=== PATIENT | male | born 1960 | race African-American/Black ===

== ENCOUNTER 2019-02-15 17:58 | Emergency (ER) | payer OTHER ==
--- NOTE | 2019-02-15 19:07 | ER Document Report ---
ED Medical Screen (RME) - General Chief Complaint: Leg Swelling Stated Complaint: RIGHT LEG PAIN/SWELLING Time Seen by Provider: 02/15/19 19:01 Primary Care Provider: MARGIE LOUIS MD [Primary Care Provider] - Follow up as needed TRAVEL OUTSIDE OF THE [place] IN LAST 30 DAYS: No - HPI Notes: 02/15/19 19:06 Patient is a 59-year-old male with a history of hypertension who presents complaining of right calf pain that began on Friday with swelling that began on Friday without precipitating event or injury. Patient states that he has never had swelling in his legs before. He was sent here for evaluation for possible DVT. Denies drug allergies. Denies any prolonged immobilization, distance travel, recent surgery/trauma, personal cancer history, hormone use, or previous DVT/PE. Denies LIMON, fever, neck pain, URI, CP, SOB, Abd pain, dysuria, back pain, or rash. I have treated and performed a rapid initial assessment of this patient. A comprehensive ED assessment and evaluation of the patient, analysis of test results and completion of medical decision making process will be conducted by additional ED providers. PHYSICAL EXAMINATION: GENERAL: Well-appearing, well-nourished and in no acute distress. A&Ox4. Answers questions appropriately. Rt leg: + 1+ pitting edema. + calf tenderness. N/v intact otherwise. RLE larger than the LLE. - Related Data Allergies/Adverse Reactions: No Known Allergies Allergy (Unverified 02/15/19 18:24) Past Medical History - Social History Frequency of alcohol use: Occasional Drug Abuse: None - Past Medical History Cardiac Medical History: Reports: Hx Hypertension Pulmonary Medical History: Reports: Hx Asthma Renal/ Medical History: Denies: Hx Peritoneal Dialysis Past Surgical History: Reports: Hx Orthopedic Surgery Physical Exam - Vital signs Vitals: Temp Pulse Resp BP Pulse Ox 98.6 F 69 16 143/92 H 98 02/15/19 18:30 02/15/19 18:30 02/15/19 18:30 02/15/19 18:30 02/15/19 18:30 Course - Vital Signs Vital signs: Temp Pulse Resp BP Pulse Ox 98.6 F 69 16 143/92 H 98 02/15/19 18:30 02/15/19 18:30 02/15/19 18:30 02/15/19 18:30 02/15/19 18:30 Doctor's Discharge - Discharge Referrals: MARGIE LOUIS MD [Primary Care Provider] - Follow up as needed
[2019-02-15 19:57] LABS: ABSOLUTE BASOPHILS # (AUTO) 0.1 10^3/uL (0.0-0.2); ABSOLUTE EOSINOPHILS # (AUTO) 0.3 10^3/uL (0.0-0.6); ABSOLUTE MONOCYTES (AUTO) 1.3 10^3/uL (0.1-1.4); ABSOLUTE NEUT (AUTO) 5.9 10^3/uL (1.7-8.2); BASOPHILS % (AUTO) 0.8 % (0-2); EOSINOPHILS % (AUTO) 2.9 % (0-6); HEMATOCRIT 41.6 % (37.9-51.0); HEMOGLOBIN 14.3 g/dL (13.5-17.0); LYMPHOCYTES % (AUTO) 21.3 % (13-45); MEAN CORPUSCULAR HEMOGLOBIN 28.6 pg (27.0-33.4); MEAN CORPUSCULAR HGB CONC 34.5 g/dL (32.0-36.0); MEAN CORPUSCULAR VOLUME 83 fl (80-97); MONOCYTES % (AUTO) 13.3 % (3-13); PLATELET COUNT 147 10^3/uL (150-450); RED BLOOD COUNT 5.02 10^6/uL (4.35-5.55); RED CELL DISTRIBUTION WIDTH 13.4 % (11.5-14.0); SEGMENTED NEUTROPHILS % (AUTO) 61.7 % (42-78); TOTAL CELLS COUNTED % (AUTO) 100 %; WHITE BLOOD COUNT 9.5 10^3/uL (4.0-10.5)
[2019-02-15 20:08] LABS: INTERNATIONAL RATION (INR) 0.95; PROTHROMBIN TIME 13.2 SEC (11.4-15.4)
[2019-02-15 20:09] LABS: PARTIAL THROMBOPLASTIN TIME 28.6 SEC (23.5-35.8)
[2019-02-15 20:16] LABS: ANION GAP 9 (5-19); BLOOD UREA NITROGEN 15 mg/dL (7-20); CALCIUM 9.6 mg/dL (8.4-10.2); CARBON DIOXIDE 27 mmol/L (22-30); CHLORIDE 101 mmol/L (98-107); GLUCOSE 86 mg/dL (75-110); POTASSIUM 4.5 mmol/L (3.6-5.0); SODIUM 137.4 mmol/L (137-145)
--- NOTE | 2019-02-15 20:59 | ER Document Report ---
ED General - General Chief Complaint: Leg Swelling Stated Complaint: RIGHT LEG PAIN/SWELLING Time Seen by Provider: 02/15/19 19:01 Primary Care Provider: ELA HAND MD [ACTIVE STAFF] - Follow up in 3-5 days (call for appointment ) MARGIE LOUIS MD [ACTIVE STAFF] - Follow up as needed Notes: Patient is a 59-year-old male that presents to the emergency department for chief complaint of right calf pain and swelling. Patient reports that he noticed some pain in his calf on Friday, noticed the swelling on Friday comments on the right side, and seems like it was getting worse over the period of time, he went to urgent care to have it evaluated and they were concerned that he may have a DVT so they sent him to the emergency department. He denies any recent prolonged travel, or injury to his leg, denies any recent surgery, or current cancer. He is unaware of any family history of DVTs. He denies having any associated fever, chills, night sweats, chest pain or shortness of breath. He currently rates his pain as a 0 out of 10, really only bothers him when he is walking. Past Medical History: Hypertension, degenerative disc disease Past Surgical History: Cataract surgery, elbow and shoulder surgery Social History: Admits to smoking cigars, and occasional alcohol use, denies illicit drug use. Family History: Reviewed and noncontributory for presenting illness Allergies: Reviewed, see documented allergy list. REVIEW OF SYSTEMS: Other than noted above, the 12 point review of systems was reviewed with the patient and were negative, all pertinent findings are included in the HPI. PHYSICAL EXAMINATION: Vital signs reviewed, nursing noted reviewed. GENERAL: Well-appearing, well-nourished and in no acute distress. HEAD: Atraumatic, normocephalic. EYES: Eyes appear normal, extraocular movements intact, sclera anicteric, conjunctiva are normal. ENT: nares patent, oropharynx clear without exudates. Moist mucous membranes. NECK: Normal range of motion, supple without lymphadenopathy LUNGS: Breath sounds clear to auscultation bilaterally and equal. No wheezes rales or rhonchi. HEART: Regular rate and rhythm without murmurs ABDOMEN: Soft, nontender, normoactive bowel sounds. No rebound, guarding, or rigidity. No masses appreciated. EXTREMITIES: The right calf is tender to palpate posteriorly, along with some medial tenderness of the thigh, there is 1+ edema to the right lower extremity, to the knee, where compared to the left. No significant varicosities noted. No erythema noted. Rest the patient's extremity exam is grossly unremarkable. NEUROLOGICAL: No focal neurological deficits. Moves all extremities spontaneously Motor and sensory grossly intact on exam. PSYCH: Normal mood, normal affect. SKIN: Warm, Dry, normal turgor, no rashes or lesions noted on exposed skin TRAVEL OUTSIDE OF THE [place] IN LAST 30 DAYS: No - Related Data Allergies/Adverse Reactions: No Known Allergies Allergy (Unverified 02/15/19 18:24) Past Medical History - Social History Smoking Status: Current Some Day Smoker Frequency of alcohol use: Occasional Drug Abuse: None Family History: Reviewed & Not Pertinent Patient has suicidal ideation: No Patient has homicidal ideation: No - Past Medical History Cardiac Medical History: Reports: Hx Hypertension Pulmonary Medical History: Reports: Hx Asthma Renal/ Medical History: Denies: Hx Peritoneal Dialysis Past Surgical History: Reports: Hx Orthopedic Surgery Physical Exam - Vital signs Vitals: Temp Pulse Resp BP Pulse Ox 98.6 F 69 16 143/92 H 98 02/15/19 18:30 02/15/19 18:30 02/15/19 18:30 02/15/19 18:30 02/15/19 18:30 Course - Re-evaluation Re-evalutation: Patient seen and examined vital signs reviewed. Laboratory data and/or imaging were ordered as appropriate for the patient's presenting symptoms and complaint, with consideration of any critical or life threatening conditions that may be associated with their obtained history and exam as noted above. Results were reviewed when available and demonstrated unremarkable blood work, but the patient did have a positive duplex imaging of the right lower extremity, for DVT in the distal femoral vein, and in the calf The patient was re-evaluated and was stable, was given prescription for Xarelto, given first dose of 50 mg in the ED, explained the risks and benefits of this medication including but not limited to spontaneous GI or intracranial hemorrhage, to avoid any potential traumatic circumstances and to minimize risks of falling at home and at work. Evaluation was most consistent with acute DVT in the right lower extremity, recommended follow-up with hematology, given referral, is given a prescription for 21 days of Xarelto at 15 mg twice daily, and then 7 additional days to take it as 20 mg daily. Results were discussed with the patient at this point, after careful consideration I feel that that patient can be discharged from the emergency department, the patient was educated treatments and reasons to return to the emergency department based on their presumed diagnosis as noted above, they were advised to followup with a primary care physician in 2-3 days. Patient was agreeable to plan of care. *Note is created using voice recognition software and may contain spelling, syntax or grammatical errors. Laboratory 02/15/19 02/15/19 02/15/19 19:30 19:30 19:30 WBC 9.5 RBC 5.02 Hgb 14.3 Hct 41.6 MCV 83 MCH 28.6 MCHC 34.5 RDW 13.4 Plt Count 147 L Seg Neutrophils % 61.7 Lymphocytes % 21.3 Monocytes % 13.3 H Eosinophils % 2.9 Basophils % 0.8 Absolute Neutrophils 5.9 Absolute Lymphocytes 2.0 Absolute Monocytes 1.3 Absolute Eosinophils 0.3 Absolute Basophils 0.1 PT 13.2 INR 0.95 APTT 28.6 Sodium 137.4 Potassium 4.5 Chloride 101 Carbon Dioxide 27 Anion Gap 9 BUN 15 Creatinine 1.06 Est GFR ( Amer) > 60 Est GFR (Non-Af Amer) > 60 Glucose 86 Calcium 9.6 Venous Doppler Study 02/15/19 19:06 IMPRESSION: Findings positive for right lower extremity DVT, as above. copyright 2010 [employer]- All Rights Reserved - Vital Signs Vital signs: Temp Pulse Resp BP Pulse Ox 98.6 F 79 20 152/95 H 98 02/15/19 18:30 02/15/19 22:43 02/15/19 22:43 02/15/19 22:43 02/15/19 22:43 - Laboratory Result Diagrams: 02/15/19 19:30 02/15/19 19:30 Laboratory results interpreted by me: 02/15/19 19:30 Plt Count 147 L Monocytes % 13.3 H Discharge - Discharge Clinical Impression: DVT (deep venous thrombosis) Qualifiers: DVT location: lower extremity Affected thrombotic vein of extremity: femoral Chronicity: acute Laterality: right Qualified Code(s): I82.411 - Acute embolism and thrombosis of right femoral vein Condition: Stable Disposition: HOME, SELF-CARE Instructions: DVT Outpatient Treatment ([facility]) Additional Instructions: Please follow-up with the life insurance specialist listed with your paperwork. Take the new medication as directed and if you develop chest pain or shortness of breath, please return to the emergency department. Prescriptions: Rivaroxaban [Xarelto] 20 mg PO DAILY #7 tablet Rivaroxaban [Xarelto 15 mg Tablet] 15 mg PO BID #42 tablet Referrals: MARGIE LOUIS MD [ACTIVE STAFF] - Follow up as needed ELA HAND MD [ACTIVE STAFF] - Follow up in 3-5 days (call for appointment )
[2019-02-15] MEDS ORDERED: RIVAROXABAN 15 MG TABLET PO ONE (21:49)
--- NOTE | 2019-02-15 22:39 | RADIOLOGY REPORT (SQ) ---
EXAM DESCRIPTION: US EXTREMITY VEINS UNILATERAL COMPLETED DATE/TME: 02/15/2019 19:06 CLINICAL HISTORY: 59 years, Male, RLE edema, calf pain COMPARISON: None. TECHNIQUE: Transverse longitudinal sonographic images of the right lower extremity deep venous system LIMITATIONS: None. FINDINGS: Visible areas of thrombus associated with the distal right superficial femoral vein extending into the right popliteal and right posterior tibial veins. Lack of normal compressibility and augmentation. No other areas of visible thrombus. Doppler images are otherwise normal. IMPRESSION: Findings positive for right lower extremity DVT, as above. copyright 2010 [employer]- All Rights Reserved
[2019-02-15 22:44] VITALS: BP 152/95
== END 2019-02-15 22:44 | disposition home or self-care (01) ==
LOC: ER 17:58
DX: I82.411 Acute embolism and thrombosis of right femoral vein (principal); M79.89 Other specified soft tissue disorders; F17.290 Nicotine dependence, other tobacco product, uncomplicated; I10 Essential (primary) hypertension
CPT/HCPCS: 36415; 80048; 85025; 85610; 85730; 93971; 99284

== ENCOUNTER 2020-02-05 19:40 | Emergency (ER) | payer OTHER ==
[2020-02-05] MEDS ORDERED: NORMAL SALINE 1000 ML 1,000 ML IV PRN (19:57)
[2020-02-05] MEDS ORDERED: CEFTRIAXONE INJ 1000 MG VIAL IM ONE (19:57)
[2020-02-05] MEDS ORDERED: KETOROLAC TROMETHAMINE 60 MG/2 ML SDV IV ONE (19:59)
--- NOTE | 2020-02-05 20:01 | ER Document Report ---
ED General - General Chief Complaint: Fever Stated Complaint: FEVER, HEADACHE NECK PAIN, SHOULDER PAIN Time Seen by Provider: 02/05/20 19:56 Information source: Patient Notes: 60-year-old male who has new onset fever and states he is got headache posteriorly with pain down his neck laterally he has no petechiae no photophobia no nausea no vomiting TRAVEL OUTSIDE OF THE [place] IN LAST 30 DAYS: No - HPI Onset: Just prior to arrival Onset/Duration: Persistent Quality of pain: Achy Severity: Moderate - Related Data Allergies/Adverse Reactions: shellfish derived Allergy (Intermediate, Verified 02/05/20 22:02) Hives Home Medications: Hydrocodone, Naproxen, Hydroclorathiazide, losartan Past Medical History - General Information source: Patient - Social History Smoking Status: Never Smoker Cigarette use (# per day): No Chew tobacco use (# tins/day): No Smoking Education Provided: No Frequency of alcohol use: Occasional Drug Abuse: None Family History: Reviewed & Not Pertinent Patient has homicidal ideation: No - Past Medical History Cardiac Medical History: Reports: Hx Hypertension Pulmonary Medical History: Reports: Hx Asthma Renal/ Medical History: Denies: Hx Peritoneal Dialysis Past Surgical History: Reports: Hx Orthopedic Surgery Review of Systems - Review of Systems Constitutional: No symptoms reported EENT: No symptoms reported Cardiovascular: No symptoms reported Respiratory: No symptoms reported Gastrointestinal: No symptoms reported Genitourinary: No symptoms reported Male Genitourinary: No symptoms reported Musculoskeletal: No symptoms reported Skin: No symptoms reported Hematologic/Lymphatic: No symptoms reported Neurological/Psychological: No symptoms reported Physical Exam - Vital signs Vitals: Temp Pulse Resp BP Pulse Ox 100.4 F 97 18 139/85 H 97 02/05/20 19:50 02/05/20 19:50 02/05/20 19:50 02/05/20 19:50 02/05/20 19:50 Interpretation: Normal - General General appearance: Appears well, Alert - HEENT Head: Normocephalic, Atraumatic Eyes: Normal Pupils: PERRL - Respiratory Respiratory status: No respiratory distress Chest status: Nontender Breath sounds: Normal Chest palpation: Normal - Cardiovascular Rhythm: Regular Heart sounds: Normal auscultation Murmur: No - Abdominal Inspection: Normal Distension: No distension Bowel sounds: Normal Tenderness: Nontender Organomegaly: No organomegaly - Back Back: Normal, Nontender - Extremities General upper extremity: Normal inspection, Nontender, Normal color, Normal ROM, Normal temperature General lower extremity: Normal inspection, Nontender, Normal color, Normal ROM, Normal temperature, Normal weight bearing. No: Corrie's sign - Neurological Neuro grossly intact: Yes Cognition: Normal Orientation: AAOx4 Christian Coma Scale Eye Opening: Spontaneous Christian Coma Scale Verbal: Oriented [place] Coma Scale Motor: Obeys Commands [place] Coma Scale Total: 15 Speech: Normal Motor strength normal: LUE, RUE, LLE, RLE Sensory: Normal - Psychological Associated symptoms: Normal affect, Normal mood - Skin Skin Temperature: Warm Skin Moisture: Dry Skin Color: Normal Course - Vital Signs Vital signs: Temp Pulse Resp BP Pulse Ox 98.5 F 78 12 126/78 H 99 02/06/20 01:38 02/06/20 01:38 02/06/20 01:38 02/06/20 01:38 02/06/20 01:38 - Laboratory Result Diagrams: 02/05/20 20:06 02/05/20 20:06 Laboratory results interpreted by me: 02/05/20 02/05/20 02/05/20 20:06 20:06 20:38 WBC 17.5 H Plt Count 147 L Lymph % (Auto) 9.4 L Absolute Neuts (auto) 14.8 H Seg Neutrophils % 84.4 H Sodium 134.9 L Chloride 97 L Urine Urobilinogen 2.0 H Discharge - Discharge Clinical Impression: Fever Qualifiers: Encounter type: initial encounter Headache Qualifiers: Headache chronicity pattern: acute headache Condition: Stable Disposition: AGAINST MEDICAL ADVICE Instructions: Acetaminophen, Fever ([facility]) Additional Instructions: No clear cause was identified today for your fever. You were treated with antibiotics for possible meningitis. An attempt to obtain spinal fluid was unsuccessful, and you have declined admission to the hospital for continued IV antibiotics and attempt to obtain fluid via radiology. It has been explained to you that deficits and complications from bacterial meningitis include seizures, neurological deficits, and even . It is also been explained to you that, if it anytime you change your mind regarding admission, or another attempt at lumbar puncture, you can return to the ED for further evaluation. If you develop worsening or new concerning symptoms of any sort, please return immediately to the ER for further evaluation. Otherwise, follow-up with your primary care provider on Jeff morning. We did perform COVID-19 testing on you today. This will take at least 48 hours to result. Please note that you should self quarantine, as should any members of your household. You will be contacted with results.
[2020-02-05 20:31] LABS: ABSOLUTE BASOPHILS # (AUTO) 0.1 10^3/uL (0.0-0.2); ABSOLUTE EOSINOPHILS # (AUTO) 0.1 10^3/uL (0.0-0.6); ABSOLUTE LYMPHOCYTES (AUTO) 1.6 10^3/uL (0.5-4.7); ABSOLUTE MONOCYTES (AUTO) 0.9 10^3/uL (0.1-1.4); ABSOLUTE NEUT (AUTO) 14.8 10^3/uL (1.7-8.2); BASOPHILS % (AUTO) 0.4 % (0-2); EOSINOPHILS % (AUTO) 0.6 % (0-6); HEMATOCRIT 44.5 % (37.9-51.0); HEMOGLOBIN 15.3 g/dL (13.5-17.0); LYMPHOCYTES % (AUTO) 9.4 % (13-45); MEAN CORPUSCULAR HEMOGLOBIN 28.2 pg (27.0-33.4); MEAN CORPUSCULAR HGB CONC 34.5 g/dL (32.0-36.0); MEAN CORPUSCULAR VOLUME 82 fl (80-97); MONOCYTES % (AUTO) 5.2 % (3-13); PLATELET COUNT 147 10^3/uL (150-450); RED BLOOD COUNT 5.44 10^6/uL (4.35-5.55); RED CELL DISTRIBUTION WIDTH 13.5 % (11.5-14.0); SEGMENTED NEUTROPHILS % (AUTO) 84.4 % (42-78); TOTAL CELLS COUNTED % (AUTO) 100 %; WHITE BLOOD COUNT 17.5 10^3/uL (4.0-10.5)
[2020-02-05 20:48] LABS: ALBUMIN 4.6 g/dL (3.5-5.0); ALKALINE PHOSPHATASE 80 U/L (38-126); ANION GAP 10 (5-19); ASPARTATE AMINO TRANSFERASE 23 U/L (17-59); BILIRUBIN,TOTAL 0.6 mg/dL (0.2-1.3); BLOOD UREA NITROGEN 16 mg/dL (7-20); CALCIUM 9.7 mg/dL (8.4-10.2); CARBON DIOXIDE 28 mmol/L (22-30); CHLORIDE 97 mmol/L (98-107); GLUCOSE 98 mg/dL (75-110); POTASSIUM 4.5 mmol/L (3.6-5.0); TOTAL PROTEIN 8.2 g/dL (6.3-8.2)
--- NOTE | 2020-02-05 21:05 | RADIOLOGY REPORT (SQ) ---
EXAM DESCRIPTION: CT HEAD WITHOUT IV CONTRAST COMPLETED DATE/TME: 02/05/2020 19:56 CLINICAL HISTORY: 60 years, Male, pain COMPARISON: None. TECHNIQUE: Images stored on PACS. All CT scanners at this facility use dose modulation, iterative reconstruction, and/or weight based dosing when appropriate to reduce radiation dose to as low as reasonably achievable (ALARA). [facility]: Dose Right [facility]: CareDose [facility]: Dose Right [facility]: Teradose 4D [facility]: [employer] LIMITATIONS: None. EXAM DESCRIPTION: CLINICAL HISTORY: pain COMPARISON: None Available TECHNIQUE: Contiguous axial CT images of the head were obtained. Coronal and sagittal reconstructions were created from the axial data. This exam was performed according to our departmental dose-optimization program, which includes automated exposure control, adjustment of the mA and/or kV according to patient size and/or use of iterative reconstruction technique. FINDINGS: There is no evidence of acute mass, mass effect, midline shift or hemorrhage. The ventricles and extra-axial CSF spaces are unremarkable. The brain parenchyma appears normal for the patient's age. No acute abnormalities of the bones is seen. IMPRESSION: No acute intracranial abnormality.
--- NOTE | 2020-02-05 21:09 | RADIOLOGY REPORT (SQ) ---
EXAM DESCRIPTION: CT CERVICAL SPINE WITHOUT IV CONTRAST COMPLETED DATE/TME: 02/05/2020 19:57 CLINICAL HISTORY: 60 years, Male, pain COMPARISON: None. TECHNIQUE: Images stored on PACS. All CT scanners at this facility use dose modulation, iterative reconstruction, and/or weight based dosing when appropriate to reduce radiation dose to as low as reasonably achievable (ALARA). [facility]: Dose Right [facility]: CareDose [facility]: Dose Right [facility]: Teradose 4D [facility]: [employer] EXAM DESCRIPTION: CLINICAL HISTORY: pain COMPARISON: None Available TECHNIQUE: Contiguous axial images of the cervical spine were obtained without the administration of intravenous contrast followed by reconstruction images. This exam was performed according to our departmental dose-optimization program, which includes automated exposure control, adjustment of the mA and/or kV according to patient size and/or use of iterative reconstruction technique. FINDINGS: There is no acute fracture or subluxation. Prevertebral soft tissues are within normal limits. IMPRESSION: No acute fracture or subluxation
[2020-02-05 21:36] LABS: APPEARANCE,URINE CLEAR; BILIRUBIN,URINE NEGATIVE (NEGATIVE); COLOR,URINE YELLOW; GLUCOSE, URINE NEGATIVE (NEGATIVE); KETONES,URINE NEGATIVE (NEGATIVE); LEUKOCYTE ESTERASE,URINE NEGATIVE (NEGATIVE); NITRITE,URINE NEGATIVE (NEGATIVE); PROTEIN,URINE NEGATIVE (NEGATIVE); URINE SPECIFIC GRAVITY 1.016
[2020-02-05] MEDS ORDERED: ACETAMINOPHEN 325 MG TABLET PO ONE (22:01)
[2020-02-05] MEDS ORDERED: LIDOCAINE 1% INJ-PF (10 MG/ML) 30 ML SDV INJ ONE (23:36)
[2020-02-06] MEDS ORDERED: NORMAL SALINE 1000 ML 1,000 ML IV ONE (00:25)
[2020-02-06] MEDS ORDERED: CEFTRIAXONE 1 GM/D5W RTU 1 GM/50 ML RTUPB IV ONE (00:25)
--- NOTE | 2020-02-06 00:34 | ER Document Report ---
ED General - General Chief Complaint: Fever Stated Complaint: FEVER, HEADACHE NECK PAIN, SHOULDER PAIN Time Seen by Provider: 02/05/20 19:56 TRAVEL OUTSIDE OF THE [place] IN LAST 30 DAYS: No - HPI Notes: Patient is a 60-year-old male with a history of chronic back pain, degenerative disc disease, hypertension, who presents to the emergency department for evaluation of fever, headache, neck pain. He states he was outside smoking a cigar at approximately 5 PM. He developed chills. He came in, states he developed a posterior headache. He states it was on both sides of the occipital region. He states he gets headaches sometimes, but usually they are more one- sided than the other. He states that occasionally this pain radiates into his neck and his shoulders. He denies any phi neck stiffness. He has had no ear pain, no sore throat, no cough. No rashes. No nausea or vomiting. Normal bowel movements. No dysuria, hematuria, urinary frequency. He has no dental lesions. He has no skin rashes. 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 - Related Data Allergies/Adverse Reactions: shellfish derived Allergy (Intermediate, Verified 02/05/20 22:02) Hives Home Medications: Hydrocodone, Naproxen, Hydroclorathiazide, losartan Past Medical History - General Information source: Patient - Social History Smoking Status: Never Smoker Cigarette use (# per day): No Chew tobacco use (# tins/day): No Frequency of alcohol use: Occasional Drug Abuse: None Family History: Reviewed & Not Pertinent, Malignancy Patient has homicidal ideation: No - Past Medical History Cardiac Medical History: Reports: Hx Hypertension Pulmonary Medical History: Reports: Hx Asthma Renal/ Medical History: Denies: Hx Peritoneal Dialysis Musculoskeletal Medical History: Reports Other - Degenerative disc disease of lumbar spine Past Surgical History: Reports: Hx Orthopedic Surgery Review of Systems - Review of Systems Constitutional: See HPI Neurological/Psychological: See HPI -: Yes All other systems reviewed and negative Physical Exam - Vital signs Vitals: Temp Pulse Resp BP Pulse Ox 100.4 F 97 18 139/85 H 97 02/05/20 19:50 02/05/20 19:50 02/05/20 19:50 02/05/20 19:50 02/05/20 19:50 - Notes Notes: Vital signs reviewed, please refer to chart. Head is normocephalic, atraumatic. Pupils equal round, reactive to light. Oral mucosa is moist. Uvula is midline. Pharynx is without erythema or exudate. Neck is supple without meningismus. Heart is regular rate and rhythm. Lungs are clear to auscultation bilaterally. Abdomen is soft, nontender, normoactive bowel sounds throughout. Extremities without cyanosis, clubbing. Posterior calves are nontender. Peripheral pulses are equal. Skin is warm and dry. Patient is awake, alert, oriented x3. Cranial nerves II - XII are grossly intact without focal neurological deficits. Strength is plus 5 out of 5 bilateral upper and lower extremities. Sensation is intact. Reflexes symmetrical. Intact [id number], rapid alternating movements, [id number]. Course - Re-evaluation Re-evalutation: 02/06/20 00:31 Patient presents to the emergency department for evaluation of chills and h eadache. While here he progressed to a fever. He was initially seen by [facility], please see his note to correlate with mine. In short, this patient has no clear focus of infection. His leukocytosis. He has a headache without phi nuchal rigidity, but certainly the possibility of meningitis had to be considered on the differential diagnosis. He was given a gram of Rocephin per the [facility], I did add a second gram as per appropriate protocol for meningitis treatment. Lumbar puncture was explained in great detail, consent was signed and placed on the chart. Please see separate procedure note. I was unsuccessful in attempt to obtain spinal fluid. I offered the patient admission, IV antibiotics, and interventional radiology lumbar puncture performed, the patient states he would like to go home. We talked at length about the sequelae of meningitis. We talked at length about the neurological deficits, seizures, and that can result of untreated bacterial meningitis. He voiced understanding to this and still wishes to leave. He did sign AMA forms. I still did cover him with 2 g o f IV Rocephin. He was given IV fluids. He was given Tylenol for his headache. He understand that if he changes his mind at any time regarding treatment or admission he can come back to the emergency department. - Vital Signs Vital signs: Temp Pulse Resp BP Pulse Ox 98.6 F 68 14 111/69 99 02/06/20 00:15 02/06/20 00:15 02/06/20 00:15 02/06/20 00:15 02/06/20 00:15 - Laboratory Result Diagrams: 02/05/20 20:06 02/05/20 20:06 Laboratory results interpreted by me: 02/05/20 02/05/20 02/05/20 20:06 20:06 20:38 WBC 17.5 H Plt Count 147 L Lymph % (Auto) 9.4 L Absolute Neuts (auto) 14.8 H Seg Neutrophils % 84.4 H Sodium 134.9 L Chloride 97 L Urine Urobilinogen 2.0 H Procedures - Lumbar Puncture Lumbar puncture Consent obtained: Yes Lumbar puncture pre-procedure: Sterile PPE donned, Betadine prep applied, Chloraprep applied Patient position: Other - Initially sitting, then right lateral recumbent Anesthetic type: 1% Lidocaine mL's of anesthetic: 4 Number of attempts: 2 Complications: No - Unable to obtain fluid Notes: 02/06/20 00:36 The procedure was explained in great detail. Indications were explained. Consent was signed and placed on the chart. The area was prepped and draped in the usual sterile fashion. Initially, patient was placed in an upright sitting position, with bending over the shoulders to optimize pacing. The top of the posterior superior iliac spine was palpated, and the L3-L4 interspace was identified. The area was prepped and draped in usual sterile fashion. The area was anesthetized in the subcutaneous and dermal tissues with approximately 2 and half cc of 1% lidocaine. Once adequate anesthesia was achieved. Spinal needle was advanced. Despite what appeared to be ideal positioning, as far as what was possible for the patient given his chronic back issues, I was unable to obtain CSF. The needle was withdrawn, with stylette in place. The patient was then placed in the right lateral recumbent position, further 2 cc of lidocaine were used to anesthetize again, an attempt was again made to abstain spinal fluid. I was again unsuccessful, still unable to access spinal fluid. Stylet was replaced prior to removal of the spinal needle. There was a scant amount of blood noted. The area was cleansed and bandage was placed. Patient is placed in a supine position. He tolerated it well, no complications noted. Discharge - Discharge Clinical Impression: Fever Qualifiers: Encounter type: initial encounter Headache Qualifiers: Headache chronicity pattern: acute headache Condition: Stable Disposition: AGAINST MEDICAL ADVICE Instructions: Acetaminophen, Fever ([facility]) Additional Instructions: No clear cause was identified today for your fever. You were treated with antibiotics for possible meningitis. An attempt to obtain spinal fluid was unsuccessful, and you have declined admission to the hospital for continued IV antibiotics and attempt to obtain fluid via radiology. It has been explained to you that deficits and complications from bacterial meningitis include seizures, neurological deficits, and even . It is also been explained to you that, if it anytime you change your mind regarding admission, or another attempt at lumbar puncture, you can return to the ED for further evaluation. If you develop worsening or new concerning symptoms of any sort, please return immediately to the ER for further evaluation. Otherwise, follow-up with your primary care provider on Friday morning. We did perform COVID-19 testing on you today. This will take at least 48 hours to result. Please note that you should self quarantine, as should any members of your household. You will be contacted with results.
[2020-02-06 01:39] VITALS: BP 126/78
== END 2020-02-06 01:39 | disposition left against medical advice (07) ==
LOC: ER 19:40
PROC: 00JU3ZZ Inspection of Spinal Canal, Percutaneous Approach (ICD-10-PCS; principal; 2020-02-05)
DX: R50.9 Fever, unspecified (principal); R51 Headache; M54.2 Cervicalgia; M54.9 Dorsalgia, unspecified; G89.29 Other chronic pain; Z88.8 Allergy status to other drugs, medicaments and biological substances; Z79.899 Other long term (current) drug therapy; Z20.828 Contact with and (suspected) exposure to other viral communicable diseases
CPT/HCPCS: 62270; 99284; 96372; 96361; 96375; 96365; 36415; 87040; 85025; 87635; 80053; 81001; 70450; 72125; J1885; J0696 ×2; J7030 ×2; C9803